=== PATIENT | female | born 1995 | race Hispanic/Latino ===

== ENCOUNTER 2022-05-13 16:27 | Emergency (ER) | payer OTHER, SELFPAY ==
[2022-05-13] MEDS ORDERED: Metoclopramide HCl 10 MG/2 ML VIAL ONE (16:56)
[2022-05-13] MEDS ORDERED: diphenhydrAMINE 50 MG/ML VIAL ONE (16:56)
[2022-05-13 17:51] LABS: #Eosinphils 0.2 thou/uL (0.0-0.7); #Lymphocytes 2.9 thou/uL (1.20-3.40); #Monocytes 0.6 thou/uL (0.11-0.59); #Neutrophils 4.5 thou/uL (1.40-6.50); %Basophils 0.5 % (0.0-1.0); %Eosinophils 1.9 % (0.0-10.0); %Lymphocytes 35.3 % (21.0-51.0); %Neutrophils 55.3 % (42.0-75.0); Hemoglobin 12.3 g/dL (12.0-16.0); Mean Corpuscular HGB CONC 33.8 g/dL (32.0-36.0); Mean Corpuscular Hemoglobin 29.3 pg (27.0-31.0); Mean Corpuscular Volume 86.5 fl (78.0-98.0); Mean Platelet Volume 8.3 fL (7.4-10.4); Platelet Count 228 10x3/uL (130-400); RBC Distribution Width 11.9 % (11.5-14.5); White Blood Cell (WBC) Count 8.2 10x3/uL (4.8-10.8)
[2022-05-13 18:13] LABS: ALT (SGPT) 16 U/L (8-55); AST (SGOT) 16 U/L (5-34); Albumin 3.8 g/dL (3.5-5.0); Alkaline Phosphatase 60 U/L (40-110); Anion Gap 10 mmol/L (10-20); BUN (Urea Nitrogen) 10 mg/dL (7.0-18.7); Bilirubin, Total 0.2 mg/dL (0.2-1.2); Calc. Creatinine Clearance 0 mL/min (70-130); Calcium 8.6 mg/dL (7.8-10.44); Carbon Dioxide 23 mmol/L (22-29); Chloride 109 mmol/L (98-107); Estimated GFR 119; Glucose 86 mg/dL (70-105); Protein, Total 6.8 g/dL (6.0-8.3); Sodium 138 mmol/L (136-145)
== END 2022-05-13 19:08 | disposition home or self-care (01) ==
LOC: ERS 16:27
DX: O26.891 Other specified pregnancy related conditions, first trimester (principal); Z3A.01 Less than 8 weeks gestation of pregnancy
CPT/HCPCS: 36415; 76856; 80053; 84702; 85025; 96365; 96375; J1200; J2765

== ENCOUNTER 2024-02-18 08:42 | Day surgery (SDC) | payer OTHER ==
[2024-02-18] MEDS ORDERED: Acetaminophen 500 MG TAB ONE (08:53)
[2024-02-18] MEDS: Acetaminophen 500 MG TAB PO SCH (08:54)
[2024-02-18] MEDS: Iron Sucrose Complex 500 MG in Sodium Chloride 0.9% 250 ML 250 ML IVPB SCH (09:37)
[2024-02-18 15:26] VITALS: BP 111/58; TEMP 97.9
== END 2024-02-18 15:27 | disposition home or self-care (01) ==
LOC: ONC/OP 08:42
PROVIDERS: ATTEND Family Medicine
DX: O99.019 Anemia complicating pregnancy, unspecified trimester (principal); Z3A.00 Weeks of gestation of pregnancy not specified
CPT/HCPCS: 96365; 96366; J1756; J7050